=== PATIENT | male | born 1950 | race Caucasian/White ===

== ENCOUNTER 2016-05-21 05:59 | Inpatient (IN) | payer MEDICARE ==
[2016-05-21] MEDS ORDERED: ONDANSETRON HCL 4 MG ODT TAB PO PRN (06:23)
[2016-05-21] MEDS ORDERED: hydrALAZINE 20 MG/ML VIAL IV PRN (06:23)
[2016-05-21] MEDS ORDERED: HYDROmorphone 1 MG INJECTION IV PRN ×2 (06:23)
[2016-05-21] MEDS ORDERED: ONDANSETRON HCL 4 MG/2 ML VIAL IV PRN ×2 (06:23→11:50)
[2016-05-21] MEDS ORDERED: LABETALOL 20 MG/4 ML SYRINGE IV PRN (06:23)
[2016-05-21] MEDS ORDERED: FENTANYL 100 MCG/2 ML VIAL IV PRN (06:23)
[2016-05-21] MEDS ORDERED: MEPERIDINE 25 MG/ML TUBEX IV PRN (06:23)
--- NOTE | 2016-05-21 06:31 | HIM.ANES ---
Anesthesia Evaluation & Plan Diagnoses: MALIGNANT NEOPLASM OF PROSTATE (05/21/16) - Focused Review of Systems Cardiac History: Yes: Hx Hypertension (last 10 years), Hx Cardiac Disorders HEENT: Yes: Hx Ear Problem, Other HEENT Problems No: Cataracts, Cataract Removal, Glaucoma, Macular Degeneration, Hx Dysphagia , Temporomandibular Joint Disease (TMJ), Hx Deviated Septum, Hx Vision Problem Hx Other HEENT Surgery: TONSILLECTOMY Respiratory: Gastrointestinal: Yes: Hx Colonoscopy No: Hx Gastrointestinal Disorders Genitourinary: Neurological/Musculoskeletal: Yes: Hx Syncope (D/T BLOOD LOSS 03/2016), Hx Head Trauma, Hx Neurological Disorders Physiological: No Hx Anxiety, No Hx Depression, Yes Hx Mental/Emotional Disorders, No Hx Bipolar Disorder HX Other Psyco/Soc Problems: PTSD Endocrine: Blood/Autoimmune: Yes: Hx Blood Transfusions (03/2016), Hx Anemia No: Hx AIDS, Hx Hepatitis (type) Smoking Status: Light tobacco smoker (less than 5/day) Past Social History: Denies: Substance Use Disorder Surgical History: No: Nasal, T&A, Bowel, PEG Placement, Nephrectomy Other Surgical History: TONSILLECTOMY - Focused Physical Exam Mallampati: Class II Thyromental Distance: Greater than 3 Neck: Full Range of Motion Dental: Normal - no significant findings Cardiovascular/Chest: Normal Respiratory: Lungs clear Any problems with anesthesia, including nausea and vomiting?: No Any relatives with a history of Malignant Hyperthermia?: No Other: Problem List Problem Status Onset Prostatic hypertrophy Acute Rectal hemorrhage Acute Symptomatic anemia Acute Syncope Acute Allergies Allergy/AdvReac Type Severity Reaction Status Date / Time No Known Allergies Allergy Verified 05/16/16 15:22 Home Medications Medication Instructions Recorded Last Taken Type Acetaminophen Tablet [TYLENOL 650 mg PO Q6H PRN 05/16/16 Unknown History Tablet] Aspirin [Ecotrin] 81 mg PO DAILY 05/16/16 05/16/16 History Lisinopril 40 mg PO DAILY 05/16/16 Unknown History Mv, Min #36/Iron,Carbonyl/FA 1 each PO DAILY 05/16/16 Unknown History [Geritol Complete Tablet] Height and Weight Patient's height 5 ft 11 in Patient's weight 72.575 kg BMI 22.1 - Anesthetic Plan Anesthesia Type: General ASA Class: 2 -: I have examined this patient and reviewed the medical record. The patient has been assessed prior to anesthesia. Risks and benefits of anesthesia and anesthetic technique options have been discussed and all questions answered. The patient accepts the risk and desires me to proceed with the planned anesthetic.
[2016-05-21] MEDS ORDERED: HEPARIN 5000 UNITS/ML VIAL ONE (06:36)
[2016-05-21 06:46] LABS: MPV 6.9 fL (7.4-10.4)
[2016-05-21 06:49] LABS: BLOOD UREA NITROGEN 7 MG/DL (9-20); CALCIUM 8.9 MG/DL (8.4-10.2); CALCULATED OSMOLALITY 258 MOs/Kg (270-290); CHLORIDE 100 mEq/L (98-107); GLUCOSE 102 MG/DL (70-99); SODIUM LEVEL 135 mEq/L (137-146)
[2016-05-21] MEDS ORDERED: Levofloxacin 500 mg/100 ml D5W 500 MG/100 ML RTU IV ONE (07:09)
[2016-05-21 07:29] LABS: SEG NEUTROPHIL 18 % (45-76); TOTAL CELL COUNT 100
[2016-05-21] MEDS ORDERED: LR 1,000 ML IV ONE (10:10)
[2016-05-21] MEDS ORDERED: FENTANYL 100 MCG/2 ML VIAL ONE (10:38)
[2016-05-21] MEDS: FENTANYL 100 MCG/2 ML VIAL IV PRN ×2 (10:40→10:50)
--- NOTE | 2016-05-21 11:12 | HIMOPRPT ---
POSTOPERATIVE DIAGNOSIS: DATE OF PROCEDURE: 05/21/16 PREOPERATIVE DIAGNOSIS: Carcinoma of the prostate. POSTOPERATIVE DIAGNOSIS: Carcinoma of the prostate. PROCEDURE PERFORMED: Radical retropubic prostatectomy with bilateral pelvic lymph node dissection. SURGEON: Chris Salguero M.D. RECEPTIONIST TELEPHONE OPERATOR: Deniz Wilkins M.D. ANESTHETIC: General. DESCRIPTION OF PROCEDURE: This patient was taken to the operating room, was given general anesthesia. A sand bag was placed under the lumbar curvature, and he was then placed in a position so that the pubic area was slightly extended. He was put in slight Trendelenburg position. He was then prepped and draped in usual sterile fashion after a 20-Serbian Diallo catheter left indwelling with 30 mL saline in the balloon. After he was prepped and draped in usual sterile fashion, an incision was made from just below the umbilicus to mid suprapubic area. Incision was carried through skin, subcutaneous tissue, and anterior rectus sheath. The 2 rectus muscles were from each other with the help of blunt and sharp dissection. Then, a self- retaining retractor was placed. Then, blunt and sharp dissection was carried out in the lower part of the retropubic space were identified on each side and were divided in between 2 Autoclips. At first , the lymph node dissection was carried out on the right side where external iliac vein was completely stripped of all lymphatics around it. The large and small Autoclips were used wherever needed. Obturator nerve was carefully identified. Major obturator vessels were preserved. All the lymph nodes and lymphatics were removed along the external iliac vein and the obturator group of vessels to the bifurcation of external iliac vein. A similar lymph node dissection was carried out in the opposite side. Then endopelvic fascia was opened with the help of a cautery on each side of the prostate. Then, a finger pass was made behind the dorsal venous plexus, eventually a special prostate clamp was passed behind it, also venous plexus and 2 distal ligatures were placed with the help of #1 Vicryl sutures and possible hemostatic sutures were also placed. Then, the dorsal venous plexus was divided in between the proximal and 2 distal divided ligatures. Retropubic space was entered and blunt and sharp dissection was carried out and the apex of the prostate was in the view. On each side, the neurovascular bundle was stripped off laterally and the urethra and the membranous urethra were identified. The membranous urethra was divided. The Diallo catheter was clamped with a Lauren clamp and divided distally. The Shaun clamp was placed in the posterior apex of the prostate and blunt and sharp dissection was carried on each side. Lateral prostatic pedicles were divided in between 2-0 silk sutures and divided. The seminal vesicle wERE QUITE ADHERENT WITH RECTUM--SO WERE LEFT ATTACHED TO RECTAL WALL. Once the prostate was totally dissected off from the surrounding structures, its attachment to the bladder neck was carefully dissected out with the help of blunt and sharp dissection, and eventually prostate was from the bladder. The bladder neck was repaired with the help of double 0 chromic catgut sutures, putting everting suture with the mucosa over the edges of the bladder neck. Once these were achieved, then a special curved instrumentcalled KHARI,S SOUND was passed into the urethra WITH prongs on each side tenting the membranous urethra into view. Then, 3-0 Monocryl sutures were placed in the membranous urethra, 2 posterolaterally, 1 in the midline posteriorly, and 2 anterolaterally, 1 in the midline anteriorly. The Greenwail.s sound was then removed. Now, all the laps were removed and the lap count was correct. Now, the posterior sutures in the membranous urethra were attached by parking these sutures posteriorly, 1 in the midline, 2 posterolaterally. Once this was achieved, a 20-Serbian Diallo catheter was passed into the membranous urethra into the bladder, across the bladder neck, and the balloon was filled with 15 mL of water. Now, the anastomosis of the posterior suture was carried out and subsequently the anterior suture was placed in the corresponding position in the bladder neck and tied to the bladder neck and the _sutures were nicely approximated with minimal leakage on the right side. Once the anastomosis was achieved, Diallo catheter balloon was instilled with a total of 45 mL of water. A [place] drain was placed alongside the anastomotic site and brought out through a small stab wound in the left abdominal wall and held in the skin with the help of a 2-0 silk suture. The 2 rectus muscles were approximated together with the help of 0 chromic interrupted sutures. Fascia was closed with the help of Ethibond suture using interrupted sutures. Subcutaneous layer was closed with 0 Vicryl using continuous sutures. The skin was closed with help of yisel. Sterile dressing was applied to the main operative site and the urostomy bag was placed over the urostomy drains and connected to drainage. The patient lost about 500 mL of blood, 250 mL were replaced. The patient tolerated the procedure well and was returned to the recovery area in satisfactory condition..
[2016-05-21] MEDS ORDERED: HYDROmorphone 50 ML IV SCH (12:00)
[2016-05-21] MEDS ORDERED: Vaccine Screening Complete SCH (12:00)
[2016-05-21] MEDS ORDERED: HYDROmorphone 2 MG/ML VIAL IM ONE (12:11)
[2016-05-21] MEDS ORDERED: ROCURONIUM 50 MG/5 ML VIAL IV ONE (12:11)
[2016-05-21] MEDS ORDERED: ESMOLOL 100 MG/10 ML VIAL IV ONE (12:11)
[2016-05-21] MEDS ORDERED: LABETALOL 100 MG/20 ML VIAL IV ONE (12:11)
[2016-05-21] MEDS ORDERED: PROPOFOL 200 MG/20 ML VIAL IV ONE (12:11)
[2016-05-21] MEDS ORDERED: DEXAMETHASONE 4 MG/ML VIAL IV ONE (12:11)
[2016-05-21] MEDS ORDERED: LIDOCAINE 100 MG PFS IV ONE (12:11)
[2016-05-21] MEDS ORDERED: NEOSTIGMINE 1 MG/1 ML (1:1000) INJ 10 ML MDV IM ONE (12:11)
[2016-05-21] MEDS ORDERED: GLYCOPYRROLATE 1 MG VIAL IM ONE (12:11)
[2016-05-21] MEDS ORDERED: SUCCINYLCHOLINE 20 MG/1 ML INJ 10 ML MDV IV ONE (12:11)
[2016-05-21] MEDS ORDERED: FENTANYL 250 MCG/5 ML VIAL IV ONE (12:11)
[2016-05-21] MEDS ORDERED: METOCLOPRAMIDE 10 MG/2 ML VIAL IV ONE (12:11)
[2016-05-21] MEDS ORDERED: ONDANSETRON HCL 4 MG/2 ML VIAL IV ONE (12:11)
[2016-05-21] MEDS ORDERED: MIDAZOLAM 2 MG/2 ML VIAL IV ONE (12:11)
[2016-05-21] MEDS ORDERED: NS 500 ML IV ONE (12:45)
[2016-05-21] MEDS: VITAMINS, MULTIPLE CAP PO SCH (12:49)
[2016-05-21] MEDS: ACETAMINOPHEN 325 MG/TAB TABLET PO PRN (12:50)
[2016-05-21] MEDS: LISINOPRIL 40 MG TAB PO SCH (12:52)
--- NOTE | 2016-05-21 14:49 | SC.ANESPOS ---
Post-Anesthesia Note LOC: Fully Awake Post-Anesthesia Assessment: Awake, Returned to Baseline, Hemodynamically Stable , Pain Control Adequate Phase I & II Recovery Complete: Yes Apparent Anesthesia Complication: No : N PACU Discharge Time: 11:25 - Vital Signs Blood Pressure: 110/70 Pulse: 66 Resp Rate: 16 O2 Sat: 95 Temp: 97.7 F - Comments Anesthesia Discharge Time Report Time 11:25
[2016-05-21] MEDS: D5W/LR 1,000 ML IV SCH ×2 (17:36→19:22)
[2016-05-22] MEDS: D5W/LR 1,000 ML IV SCH ×3 (03:50→16:47)
[2016-05-22 07:19] LABS: AUTOMATED BASOPHIL 0.2 % (0-2); AUTOMATED EOSINOPHIL 2.2 % (0-5); AUTOMATED LYMPH 17.9 % (17-44); AUTOMATED MONOCYTE 10.4 % (3-10); AUTOMATED NEUTROPHIL 69.3 % (45-76)
[2016-05-22] MEDS: Levofloxacin 500 mg/100 ml D5W 500 MG/100 ML RTU IV SCH (07:47)
[2016-05-22] MEDS: LISINOPRIL 40 MG TAB PO SCH (07:51)
[2016-05-22 07:52] LABS: BLOOD UREA NITROGEN 13 MG/DL (9-20); CALCIUM 7.9 MG/DL (8.4-10.2); CALCULATED OSMOLALITY 256 MOs/Kg (270-290); CHLORIDE 103 mEq/L (98-107); GLUCOSE 114 MG/DL (70-99); SODIUM LEVEL 132 mEq/L (137-146)
[2016-05-22] MEDS ORDERED: NS 250 ML IV ONE (11:38)
--- NOTE | 2016-05-22 12:04 | PCM.UROPRO ---
Chief Complaint: REELIG LITTLE WEA AND SOME PAIN AT OP SITE Post Op Day #: 1 Post-op Assessment: Reports: Pain is less, Tolerating liquids well, Flatus, Catheter draining WNL, Drains WNL Patient care reviewed: Yes Patient care reviewed and discussed with Nursing - Physical Exam Vital Signs: Temperature: 97.9 F (05/22/16 11:50) HR: 98 (05/22/16 11:50) RR: 18 (05/22/16 11:50) BP: 105/72 (05/22/16 11:50) Pulse Ox: 92 (05/22/16 11:50) General: Alert, Oriented x3 HEENT: Normal Respiratory: Normal - CTA Genitourinary: External Genitalia (NORMAL), Catheter in Place Result Diagrams: 05/22/16 06:35 05/22/16 06:35 Plan: TANSFUSE ONE UNIT OF PACKED CELLS----CLEAR LIQUID DIET---AMBULATION
[2016-05-22] MEDS: VITAMINS, MULTIPLE CAP PO SCH (13:59)
[2016-05-22] MEDS ORDERED: HYDROmorphone 50 ML IV PRN (19:23)
[2016-05-22] MEDS: HYDROCODONE 5 MG/ACETAMIN 325 MG TAB PO PRN (21:22)
[2016-05-23] MEDS: D5W/LR 1,000 ML IV SCH ×2 (03:17→14:47)
[2016-05-23] MEDS: HYDROCODONE 5 MG/ACETAMIN 325 MG TAB PO PRN ×2 (04:48→19:46)
[2016-05-23] MEDS: HYDROmorphone 1 MG INJECTION IV PRN ×4 (06:34→23:51)
[2016-05-23 07:24] LABS: AUTOMATED BASOPHIL 0.3 % (0-2); AUTOMATED LYMPH 11.3 % (17-44); AUTOMATED MONOCYTE 7.5 % (3-10); AUTOMATED NEUTROPHIL 77.9 % (45-76); MPV 6.9 fL (7.4-10.4)
[2016-05-23 07:37] LABS: BLOOD UREA NITROGEN 11 MG/DL (9-20); CALCULATED OSMOLALITY 253 MOs/Kg (270-290); CHLORIDE 102 mEq/L (98-107); GLUCOSE 108 MG/DL (70-99); SODIUM LEVEL 131 mEq/L (137-146)
[2016-05-23] MEDS: Levofloxacin 500 mg/100 ml D5W 500 MG/100 ML RTU IV SCH (09:04)
[2016-05-23] MEDS: VITAMINS, MULTIPLE CAP PO SCH (09:05)
[2016-05-23] MEDS: LISINOPRIL 40 MG TAB PO SCH (09:05)
[2016-05-23] MEDS: ACETAMINOPHEN 325 MG/TAB TABLET PO PRN (11:59)
[2016-05-23] MEDS ORDERED: RANITIDINE 150 MG TAB PO PRN (13:57)
--- NOTE | 2016-05-23 14:14 | PCM.UROPRO ---
Chief Complaint: FEELING BETTER---PASSED FLATUS Post Op Day #: 2 Post-op Assessment: Reports: Still having pain, Pain is less, Tolerating liquids well, Flatus (YES), Catheter draining WNL, Drains WNL Patient care reviewed: Yes Patient care reviewed and discussed with Nursing - Physical Exam Vital Signs: Temperature: 99.3 F (05/23/16 05:32) HR: 95 (05/23/16 05:32) RR: 18 (05/23/16 05:32) BP: 136/77 (05/23/16 05:32) Pulse Ox: 95 (05/23/16 09:18) General: Alert, Oriented x3 HEENT: Normal Respiratory: Normal - CTA Gastrointestinal: Soft, Bowel Sounds (NORMAL) Genitourinary: Catheter in Place (DRAINS SHORTENED) Result Diagrams: 05/23/16 06:50 05/23/16 06:50 Plan: SHERTEN DRAIN TODAY---TRANSFUSE 2 UNIS OF PACKED CELLS---FULL LIQUID DIET--- AMBULATION
[2016-05-23] MEDS: Aluminum;Magnesium;Simethicone 30 ML UDC PO PRN (14:26)
[2016-05-23] MEDS: D5W/NS 1,000 ML IV SCH (16:24)
[2016-05-23] MEDS ORDERED: NS 500 ML IV ONE (23:46)
[2016-05-24] MEDS: D5W/NS 1,000 ML IV SCH ×2 (02:03→14:30)
[2016-05-24] MEDS: HYDROmorphone 1 MG INJECTION IV PRN ×3 (05:05→13:10)
[2016-05-24 05:24] VITALS: BMI 24.5
[2016-05-24] MEDS: Levofloxacin 500 mg/100 ml D5W 500 MG/100 ML RTU IV SCH (07:16)
[2016-05-24 07:24] LABS: AUTOMATED BASOPHIL 0.3 % (0-2); AUTOMATED EOSINOPHIL 4.7 % (0-5); AUTOMATED LYMPH 18.2 % (17-44); AUTOMATED NEUTROPHIL 66.8 % (45-76); MPV 6.9 fL (7.4-10.4)
[2016-05-24 07:26] LABS: BLOOD UREA NITROGEN 9 MG/DL (9-20); CALCIUM 7.7 MG/DL (8.4-10.2); CALCULATED OSMOLALITY 254 MOs/Kg (270-290); CHLORIDE 103 mEq/L (98-107); GLUCOSE 104 MG/DL (70-99); SODIUM LEVEL 132 mEq/L (137-146)
[2016-05-24] MEDS: LISINOPRIL 40 MG TAB PO SCH (08:35)
[2016-05-24] MEDS: Aluminum;Magnesium;Simethicone 30 ML UDC PO PRN (12:31)
[2016-05-24] MEDS: VITAMINS, MULTIPLE CAP PO SCH (12:32)
--- NOTE | 2016-05-24 15:06 | PCM.UROPRO ---
Chief Complaint: FEELING A LOT BETTER--AMBULATING WELL Post Op Day #: 3 Post-op Assessment: Reports: Still having pain, Pain is less, Tolerating liquids well, Tolerating Regular Diet, Flatus (YES), Catheter draining WNL, Drains WNL (MINIMAL DRAINAGE---MAY REMOVE DRAINS TODAY) - Physical Exam Vital Signs: Temperature: 98.1 F (05/24/16 14:00) HR: 81 (05/24/16 14:00) RR: 18 (05/24/16 14:00) BP: 156/88 (05/24/16 14:00) Pulse Ox: 98 (05/24/16 14:00) Genitourinary: Catheter in Place Result Diagrams: 05/24/16 06:45 05/24/16 06:45 Plan: DISCHARGE HOME TODAY--WITH DAILY HOME HEALTH VISITS
--- NOTE | 2016-05-24 15:09 | PCM.DCS92 ---
- Final/Secondary Discharge Diagnosis (1) Prostate cancer Resolved C61 - MALIGNANT NEOPLASM OF PROSTATE Present on Admission: Yes Discharge Disposition: Discharge w/ Home Health Cognitive Discharge Status: Unimpaired Fuctional Discharge Status: Independent Physician Follow up/Referrals: [NonStaff] - Listed Time Paco Mooney MD [NonStaff] - Listed Time Chris Salguero MD [Staff Physician] - Listed Time Diet at Discharge: Regular (FOLLOW UP ON THURSDAY) - DC Summary Notes Hospital Course Note:: Discharge summary on patient named KADEEM TORRES admitted to [facility] on 05/21/16 by Chris Salguero MD. Date of discharge is [].
[2016-05-24] MEDS: HYDROCODONE 5 MG/ACETAMIN 325 MG TAB PO PRN (20:31)
[2016-05-25 06:50] VITALS: TEMP 98.3
[2016-05-25 08:03] VITALS: BP 153/76; PULSE 91
[2016-05-25] MEDS: LISINOPRIL 40 MG TAB PO SCH (08:03)
[2016-05-25] MEDS ORDERED: LEVOFLOXACIN 500 MG TAB PO SCH (09:00)
--- NOTE | 2016-05-29 11:38 | HIMDIS ---
HOSPITAL COURSE: This patient came in for radical prostatectomy with bilateral pelvic lymph node dissection, so this was carried out on 05/21/2016. Postoperatively, he did well except that his hematocrit dropped and had to be transfused almost 3-4 units of blood. Eventually, his hematocrit stabilized. His drains were removed on the day of discharge. It was shortened a day earlier. His Diallo catheter was draining fine. He is eating well and ambulating well. His pathology report was still pending. The patient was eventually discharged home with Cipro 500 milligram b.i.d. and Lortab 7.5 one tablet every 4-6 hours p.r.n. for pain along with other home medications and will be followed up in the office next . His labs already recorded. [id number]
== END 2016-05-25 10:05 | disposition home health service (06) | DRG 707 ==
LOC: SDC 05:59 → MPS3 11:45
PROVIDERS: ADMIT Urology; ATTEND Urology
PROC: 07BC0ZX Excision of Pelvis Lymphatic, Open Approach, Diagnostic (ICD-10-PCS; 2016-05-21)
PROC: 30233N0 Transfusion of Autologous Red Blood Cells into Peripheral Vein, Percutaneous Approach (ICD-10-PCS; 2016-05-21)
PROC: 0VT00ZZ Resection of Prostate, Open Approach (ICD-10-PCS; principal; 2016-05-21 07:15)
DX: C61 Malignant neoplasm of prostate (principal); R71.0 Precipitous drop in hematocrit; Z79.82 Long term (current) use of aspirin; Z79.899 Other long term (current) drug therapy
CPT/HCPCS: 36430; 80048; 85007; 85014; 85018; 85025; 85027; 86850; 86900; 86901; 86920; 99406; G0237; J0330; J1100; J1170; J1644; J1956; J2001; J2250; J2405; J2710; J2765; J3010; J3490; P9016